=== PATIENT | male | born 1955 | race Caucasian/White ===

== ENCOUNTER 2016-08-29 20:27 | Inpatient (IN) | payer OTHER ==
[2016-08-29 20:55] VITALS: BMI 32.5
[2016-08-29] MEDS ORDERED: SODIUM CHLORIDE 500 ML IV STA ×3 (21:07→23:25)
[2016-08-29 21:33] LABS: BASOPHIL 0.9 % (0-2.0); EOSINOPHIL 0.1 % (0-4.5); MCH 26.8 pg (25.7-33.7); MCHC 32.6 g/dl (32.0-35.9); MEAN CELL VOLUME 82.3 fl (80-96); MEAN PLT VOLUME 9.7 fl (7.5-11.1); NEUTROPHILS 80.9 % (42.8-82.8); PLATELET COUNT 243 K/MM3 (134-434); RDW 13.9 % (11.9-15.9); WHITE BLOOD COUNT 10.5 K/mm3 (4.0-10.0)
--- NOTE | 2016-08-29 21:37 | PDOC ---
History of Present Illness <Edward Colindres - Last Filed: 08/30/16 01:06> - General History Source: Patient Exam Limitations: No Limitations - History of Present Illness Initial Comments: 08/29/16 21:57 The patient is a 61 year old male, with a significant past medical history of diabetes and HLD, who presents to the emergency department with abdominal pain, nausea, vomiting and diarrhea since 5pm yesterday. He describes his abdominal pain as diffused, ranging from mild to moderate, without radiation or modifying factors. He notes that he has vomited a total of 20+ times, nonbloody, but black and watery. He also notes that he has had multiple episodes of diarrhea that is nonbloody in nature. He reports that he had a fever last night of 102 F degrees. The patient denies chest pain, shortness of breath, headache and dizziness. Denies chills, and constipation. Allergies: None Past surgical history: None reported Social history: No alcohol, tobacco or drug use reported <Judd Gordillo - Last Filed: 08/30/16 02:04> - General Chief Complaint: Vomiting/Diarrhea Stated Complaint: VOMITING/DIARRHEA Time Seen by Provider: 08/29/16 21:05 Past History - Past Medical History Anemia: No Asthma: No Cancer: No Cardiac Disorders: No CVA: No COPD: No CHF: No Dementia: No Diabetes: Yes GI Disorders: No Disorders: No HTN: No Hypercholesterolemia: Yes Liver Disease: No Suicide Attempt (Hx): Yes Seizures: No Thyroid Disease: No - Immunization History Immunization Up to Date: Yes - Psycho/Social/Smoking Cessation Hx Anxiety: No Suicidal Ideation: No Smoking Status: Yes Smoking History: Never smoked Have you smoked in the past 12 months: No Number of Cigarettes Smoked Daily: 5 If you are a former smoker, when did you quit?: 2 yrs ago Information on smoking cessation initiated: No 'Breaking Loose' booklet given: 06/24/12 Hx Alcohol Use: No Drug/Substance Use Hx: No Substance Use Type: Alcohol Hx Substance Use Treatment: No <Edward Colindres - Last Filed: 08/30/16 01:06> <Judd Gordillo - Last Filed: 08/30/16 02:04> - Past Medical History Allergies/Adverse Reactions: Allergies Allergy/AdvReac Type Severity Reaction Status Date / Time No Known Allergies Allergy Verified 08/29/16 20:55 Home Medications: Ambulatory Orders Allopurinol [Zyloprim -] 100 mg PO DAILY #0 tablet 06/25/12 Lipase/Protease/Amylase [Mary Jane Perez 12,000 Units Capsule] 0 each PO DAILY Saxagliptin HCl/Metformin HCl [Kombiglyze Xr 2.5-1,000 mg Tab] 1 tab PO DAILY Metronidazole [Flagyl -] 500 mg PO Q8H #18 tablet 02/16/16 Review of Systems - Review of Systems Able to Perform ROS?: Yes Comments:: 08/29/16 21:57 CONSTITUTIONAL: (+) Fever. No chills, no fatigue EYES: No visual changes ENT: No ear pain, no sore throat CARDIOVASCULAR: No chest pain, no palpitations RESPIRATORY: No cough, no SOB GI: (+) abdominal pain, nausea, vomiting, diarrhea GENITOURINARY: No dysuria, no frequency, no hematuria MUSKULOSKELETAL: No backpain, no joint pain, no myalgias SKIN: No rash NEURO: No headache <Judd Gordillo - Last Filed: 08/30/16 02:04> *Physical Exam - Vital Signs Last Vital Signs Temp Pulse Resp BP Pulse Ox 98.0 F 102 H 20 132/67 96 08/29/16 20:52 08/29/16 20:52 08/29/16 20:52 08/29/16 20:52 08/29/16 20:52 <Edward Colindres - Last Filed: 08/30/16 01:06> - Vital Signs Last Vital Signs Temp Pulse Resp BP Pulse Ox 98.0 F 102 H 20 132/67 96 08/29/16 20:52 08/29/16 20:52 08/29/16 20:52 08/29/16 20:52 08/29/16 20:52 - Physical Exam Comments: 08/29/16 21:58 CONSTITUTIONAL: Well-appearing; well-nourished; in no apparent distress HEAD: Normocephalic; atraumatic EYES: PERRL; EOM intact ENMT: (+) Dry Mucous membrane. External appears normal; normal oropharynx NECK: Supple; non-tender; no cervical lymphadenopathy CARD: Normal S1, S2; no murmurs, rubs, or gallops RESP: Normal chest excursion with respiration; breath sounds clear and equal bilaterally; no wheezes, rhonchi, or rales ABD: Soft, non-distended; non-tender; no palpable organomegaly, no palpable hernias EXT: Normal ROM in all four extremities; non-tender to palpation; distal pulses intact SKIN: Warm, dry, no rash NEURO: No focal neurological deficiencies <Judd Gordillo - Last Filed: 08/30/16 02:04> Heart Score/ECG Review #1 ECG reviewed & interpreted by me at: 02:04 08/30/16 00:42 Ventricular rate: 90 bpm Normal sinus rhythm <Judd Gordillo - Last Filed: 08/30/16 02:04> ED Treatment Course - LABORATORY CBC & Chemistry Diagram: 08/29/16 21:20 08/29/16 21:20 <Edward Colindres - Last Filed: 08/30/16 01:06> - LABORATORY CBC & Chemistry Diagram: 08/29/16 21:20 08/29/16 21:20 - ADDITIONAL ORDERS Additional order review: Laboratory Results 08/29/16 21:19 POC Glucometer [id number] 08/29/16 08/29/16 21:20 21:19 RBC 6.09 H D MCV 82.3 MCHC 32.6 RDW 13.9 MPV 9.7 Neutrophils % 80.9 Lymphocytes % 10.0 Monocytes % 8.1 Eosinophils % 0.1 D Basophils % 0.9 POC Glucometer [id number] - Medications Given in the ED: ED Medications Discontinued Medications Generic Name Dose Route Start Last Admin Trade Name Freq PRN Reason Stop Dose Admin Ondansetron HCl 8 mg 08/29/16 21:43 08/29/16 21:55 Zofran Injection IVPB 08/29/16 21:44 8 mg ONCE ONE Administration <Judd Gordillo - Last Filed: 08/30/16 02:04> Medical Decision Making - Medical Decision Making 08/30/16 00:34 Patient is a 61-year-old male with history of diabetes and hyperlipidemia who presents with signs and symptoms of acute gastroenteritis with numerous episodes of initially nonbloody and nonbilious vomiting followed by coffee ground emesis and loose watery stools. In the ER, patient is nontoxic-appearing , afebrile, with no focal abdominal tenderness and serial abdominal evaluations. CBC reveals elevated hemoglobin and hematocrit likely consistent with hemoconcentration. CMP reveals elevated BUN and creatinine compared to baseline consistent with mild prerenal insufficiency. Patient has received IV fluid resuscitation, Zofran and IV protonix area patient is noted to be improved clinically. Patient will require admission for GI eval and additional hydration. <Edward Colindres - Last Filed: 08/30/16 01:06> *DC/Admit/Observation/Transfer - Discharge Dispostion Admit: Yes - Attestations Physician Attestion: 08/30/16 00:34 The documentation was prepared by the scribe under my direct supervision. I have reviewed the documentation which correctly represents the findings, medical decision-making and critical action taken by me. <Edward Colindres - Last Filed: 08/30/16 01:06> - Attestations Scribe Attestion: 08/29/16 21:58 Documentation prepared by Judd Gordillo, acting as medical office supervisor for Edward Colindres MD <Judd Gordillo - Last Filed: 08/30/16 02:04> Diagnosis at time of Disposition: Coffee ground emesis, Dehydration, CHELSEA (acute kidney injury) Nausea & vomiting Qualifiers: Vomiting type: hematemesis Qualified Code(s): K92.0 - Hematemesis
[2016-08-29] MEDS ORDERED: ONDANSETRON 4 MG/2 ML VIAL IVPB ONE (21:43)
[2016-08-29] MEDS ORDERED: PANTOPRAZOLE SODIUM 40 MG in SODIUM CHLORIDE 100 ML IVPB ONE (21:44)
[2016-08-29] MEDS ORDERED: ONDANSETRON 4 MG/2 ML VIAL ONE (21:51)
[2016-08-29] MEDS ORDERED: PANTOPRAZOLE SODIUM 40 MG VIAL ONE (21:51)
[2016-08-29 21:59] LABS: ALBUMIN 4.8 g/dl (3.4-5.0); BILIRUBIN,TOTAL 0.5 mg/dL (0.2-1.0); CALCIUM 9.2 mg/dL (8.5-10.1); CREATININE 1.5 mg/dL (0.7-1.3); TOT PROT 9.1 g/dl (6.4-8.2)
[2016-08-29 22:37] LABS: INR 1.11 (0.82-1.09); PROTHROMBIN TIME (PATIENT) 12.2 SEC (9.98-11.88)
[2016-08-29] MEDS ORDERED: ACETAMINOPHEN 325 MG TABLET (FP) PO ONE (23:25)
[2016-08-29] MEDS ORDERED: ACETAMINOPHEN 325 MG TABLET (FP) ONE (23:34)
[2016-08-30] MEDS ORDERED: SODIUM CHLORIDE 1,000 ML IV SCH (00:30)
[2016-08-30] MEDS ORDERED: ACETAMINOPHEN 325 MG TABLET (FP) PO PRN (00:52)
[2016-08-30] MEDS ORDERED: PANTOPRAZOLE SODIUM 40 MG in SODIUM CHLORIDE 100 ML IVPB SCH (01:00)
[2016-08-30] MEDS: PANTOPRAZOLE SODIUM 40 MG/100 ML PRE-DOCKED IVPB SCH ×3 (01:54→22:43)
--- NOTE | 2016-08-30 08:31 | HP ---
Admitting History and Physical - Admission History of Present Illness: The patient is a 61 year old male, with a significant past medical history of diabetes and HLD, who presents to the emergency department with abdominal pain, nausea, vomiting and diarrhea since 5pm yesterday. He describes his abdominal pain as diffused, ranging from mild to moderate, without radiation or modifying factors. He notes that he has vomited a total of 20+ times, nonbloody, but black and watery. He also notes that he has had multiple episodes of diarrhea that is non bloody in nature. He reports that he had a fever last night of 102 F degrees. THIS AM PT FEELS BETTER - Past Medical History Cardiovascular: Yes: HTN, Hyperlipdemia. No: CAD Pulmonary: No: Asthma Endocrine: Yes: Diabetes Mellitus - Smoking History Smoking history: Former smoker Have you smoked in the past 12 months: No Aproximately how many cigarettes per day: 5 If you are a former smoker, when did you quit?: 2 yrs ago - Alcohol/Substance Use Hx Alcohol Use: No Home Medications - Allergies Allergies/Adverse Reactions: Allergies Allergy/AdvReac Type Severity Reaction Status Date / Time No Known Allergies Allergy Verified 08/29/16 20:55 - Home Medications Home Medications: Ambulatory Orders Allopurinol [Zyloprim -] 100 mg PO DAILY #0 tablet 06/25/12 Lipase/Protease/Amylase [Creon Dr 12,000 Units Capsule] 0 each PO DAILY Saxagliptin HCl/Metformin HCl [Kombiglyze Xr 2.5-1,000 mg Tab] 1 tab PO DAILY Metronidazole [Flagyl -] 500 mg PO Q8H #18 tablet 02/16/16 Review of Systems - Review of Systems Cardiovascular: denies: Chest Pain Respiratory: reports: No Symptoms Gastrointestinal: reports: Abdominal Pain, Diarrhea, Nausea, Vomiting Genitourinary: reports: No Symptoms Musculoskeletal: reports: No Symptoms Neurological: reports: Headache. denies: Change in Speech, Parasthesia, Tremors Physical Examination Vital Signs: Vital Signs Temperature 99.9 F H 08/30/16 06:00 Pulse Rate 96 H 08/30/16 06:00 Respiratory Rate 18 08/30/16 06:00 Blood Pressure 137/67 08/30/16 06:00 O2 Sat by Pulse Oximetry (%) 99 08/30/16 02:05 Neck: Yes: Supple Cardiovascular: Yes: Regular Rate and Rhythm Respiratory: Yes: Regular, CTA Bilaterally Gastrointestinal: Yes: Normal Bowel Sounds, Soft Edema: No Neurological: Yes: Alert, Oriented Assessment/Plan 1. N/V AD DIARRHEA MAYBE BE AGE IVF PPI GI CONSULT 2. COFFEE GROUND EMESIS R/O GI BLEED MONITOR HGB 3, DEHYDRATION/RENAL INSUFICIENCY-ACUTE IVF MONITOR 4. HEADCHES CT OF HEAD 5, FEVR CUTURES ID CONSULT
[2016-08-30 09:17] LABS: MCH 27.2 pg (25.7-33.7); MCHC 33.1 g/dl (32.0-35.9); MEAN CELL VOLUME 82.2 fl (80-96); MEAN PLT VOLUME 9.1 fl (7.5-11.1); PLATELET COUNT 202 K/MM3 (134-434); RDW 13.8 % (11.9-15.9); WHITE BLOOD COUNT 7.9 K/mm3 (4.0-10.0)
[2016-08-30 09:38] LABS: ALBUMIN 3.5 g/dl (3.4-5.0); ANION GAP 13 (8-16); CALCIUM 7.8 mg/dL (8.5-10.1); CO2 19 mmol/L (21-32); COCKROFT - GAULT 98; GLUCOSE,RANDOM 174 mg/dL (74-106); SGOT/AST 38 U/L (15-37); SGPT/ALT 40 U/L (12-78); TOT PROT 6.9 g/dl (6.4-8.2)
[2016-08-30 09:41] LABS: ALK PHOS 53 U/L (45-117); BILIRUBIN,TOTAL 0.5 mg/dL (0.2-1.0); FERRITIN 123.665 ng/ml (16.4-293.9)
[2016-08-30] MEDS: ALLOPURINOL 100 MG TABLET (FP) PO SCH (09:43)
--- NOTE | 2016-08-30 13:40 | CON.GI ---
Consult Consult Specialty:: gastroenterology Referred by:: Vitor Dia/ Ara Patel MD - History of Present Illness History of Present Illness: 61 y/ male PMH of diabetes was doing well until 2 days prior to admission when developed persistent nausea and vomiting, abdominal pain and diarrhea. Diarrhea 10-20 times a day. After several episodes of persistent vomiting, he developed 1 episode of coffee ground vomitus. This morning nausea and vomiting subsided. He continues to have diarrhea. There was no travel history. - Alcohol/Substance Use Hx Alcohol Use: No - Smoking History Smoking history: Former smoker Have you smoked in the past 12 months: No Aproximately how many cigarettes per day: 5 If you are a former smoker, when did you quit?: 2 yrs ago Home Medications - Allergies Allergies/Adverse Reactions: Allergies Allergy/AdvReac Type Severity Reaction Status Date / Time No Known Allergies Allergy Verified 08/29/16 20:55 - Home Medications Home Medications: Ambulatory Orders Allopurinol [Zyloprim -] 100 mg PO DAILY #0 tablet 06/25/12 Lipase/Protease/Amylase [Creon Dr 12,000 Units Capsule] 0 each PO DAILY Saxagliptin HCl/Metformin HCl [Kombiglyze Xr 2.5-1,000 mg Tab] 1 tab PO DAILY Metronidazole [Flagyl -] 500 mg PO Q8H #18 tablet 02/16/16 Family Disease History - Family Disease History Family History: Denies (gastric and colon cancer) Review of Systems - Review of Systems Constitutional: denies: Fever HENT: denies: Difficult Swallowing Neck: denies: Decreased ROM Cardiovascular: denies: Chest Pain Gastrointestinal: reports: Diarrhea, Other (coffee ground vomitus). denies: Constipation, Rectal Bleeding Physical Exam-GI Vital Signs: Vital Signs Temperature 99.0 F 08/30/16 10:00 Pulse Rate 91 H 08/30/16 10:00 Respiratory Rate 18 08/30/16 10:00 Blood Pressure 105/59 08/30/16 10:00 O2 Sat by Pulse Oximetry (%) 97 08/30/16 09:00 Constitutional: Yes: Well Nourished Eyes: Yes: Conjunctiva Clear HENT: Yes: Atraumatic Neck: Yes: Trachea Midline Cardiovascular: Yes: Regular Rate and Rhythm ...Palpate: Yes: Soft. No: Firm/Rigid, Guarding, Hepatomegaly, Mass, Pulsatile Mass, Splenomegaly, Tenderness Labs: CBC, BMP 08/30/16 08:40 08/30/16 08:40 INR, PTT INR 1.11 (0.82-1.09) 08/29/16 22:05 Hepatic Panel Total Bilirubin 0.5 mg/dL (0.2-1.0) 08/30/16 08:40 AST 38 U/L (15-37) H D 08/30/16 08:40 ALT 40 U/L (12-78) D 08/30/16 08:40 Alkaline Phosphatase 53 U/L (45-117) D 08/30/16 08:40 Albumin 3.5 g/dl (3.4-5.0) D 08/30/16 08:40 Home Medications Medication Instructions Recorded Allopurinol [Zyloprim -] 100 mg PO DAILY #0 tablet 06/25/12 Lipase/Protease/Amylase [Creon Dr 0 each PO DAILY 05/09/15 12,000 Units Capsule] Saxagliptin HCl/Metformin HCl 1 tab PO DAILY 05/09/15 [Kombiglyze Xr 2.5-1,000 mg Tab] Metronidazole [Flagyl -] 500 mg PO Q8H #18 tablet 02/16/16 Problem List - Problems (1) Infectious diarrhea Code(s): A09 - INFECTIOUS GASTROENTERITIS AND COLITIS, UNSPECIFIED (2) Halie-Ludwig tear Assessment/Plan: r> Protonix 40mg daily Reglan 5mg 30 min ac EGD as an outpatient patient was made aware to ff-up Code(s): K22.6 - GASTRO-ESOPHAGEAL LACERATION-HEMORRHAGE SYNDROME
[2016-08-30] MEDS ORDERED: ONDANSETRON 4 MG/2 ML VIAL IVPB STA (13:48)
[2016-08-30] MEDS: ONDANSETRON 4 MG/2 ML VIAL IVPB SCH ×3 (14:53→22:46)
[2016-08-30] MEDS: CEFTRIAXONE 1G/50 ML IVPB SCH (15:33)
[2016-08-30 16:53] LABS: URINE APPEARANCE CLEAR; URINE BILIRUBIN NEGATIVE (NEGATIVE); URINE BLOOD NEGATIVE (NEGATIVE); URINE COLOR LTYELLOW; URINE GLUCOSE (UA) 3+ (NEGATIVE); URINE KETONE 1+ (NEGATIVE); URINE LEUK ESTERASE NEGATIVE (NEGATIVE); URINE NITRITE NEGATIVE (NEGATIVE); URINE PROTEIN NEGATIVE (NEGATIVE); URINE UROBILINOGEN NEGATIVE E.U./dl (0.2-1.0)
[2016-08-30] MEDS: SODIUM CHLORIDE 0.45%/POT 1,000 ML IV SCH (17:28)
[2016-08-30] MEDS: METOCLOPRAMIDE HCL INJECTION 10 MG/2 ML VIAL IVPB SCH (17:28)
[2016-08-30 19:22] LABS: MCHC 32.9 g/dl (32.0-35.9); MEAN CELL VOLUME 82.1 fl (80-96); MEAN PLT VOLUME 8.7 fl (7.5-11.1); PLATELET COUNT 200 K/MM3 (134-434); RDW 13.6 % (11.9-15.9); WHITE BLOOD COUNT 6.6 K/mm3 (4.0-10.0)
[2016-08-30 19:48] LABS: ALBUMIN 3.6 g/dl (3.4-5.0); ANION GAP 11 (8-16); BILIRUBIN,TOTAL 0.4 mg/dL (0.2-1.0); CALCIUM 8.1 mg/dL (8.5-10.1); CO2 21 mmol/L (21-32); COCKROFT - GAULT 98; GLUCOSE,RANDOM 155 mg/dL (74-106); SGOT/AST 39 U/L (15-37); SGPT/ALT 37 U/L (12-78)
[2016-08-30 19:49] LABS: ALK PHOS 52 U/L (45-117); TOT PROT 7.2 g/dl (6.4-8.2)
[2016-08-30 19:53] LABS: TROPONIN I < 0.02 ng/ml (0.00-0.05)
[2016-08-30] MEDS ORDERED: LEVOFLOXACIN 750 MG IVPB 150 ML IVPB ONE (20:00)
[2016-08-31] MEDS: METOCLOPRAMIDE HCL INJECTION 10 MG/2 ML VIAL IVPB SCH ×3 (01:39→17:53)
[2016-08-31] MEDS: ONDANSETRON 4 MG/2 ML VIAL IVPB SCH (02:25)
[2016-08-31] MEDS ORDERED: ONDANSETRON 4 MG/2 ML VIAL IVPB PRN (02:30)
[2016-08-31 06:36] LABS: SERUM IRON 21 ug/dL (38-169); TOTAL IRON BINDING CAPACITY 331 ug/dL (250-450); UIBC 310 ug/dL (111-343)
[2016-08-31] MEDS: SODIUM CHLORIDE 0.45%/POT 1,000 ML IV SCH ×3 (08:10→20:46)
[2016-08-31 08:32] LABS: BASOPHIL 0.8 % (0-2.0); EOSINOPHIL 0.1 % (0-4.5); MCH 27.3 pg (25.7-33.7); MCHC 33.2 g/dl (32.0-35.9); MEAN CELL VOLUME 82.2 fl (80-96); MEAN PLT VOLUME 9.1 fl (7.5-11.1); NEUTROPHILS 59.7 % (42.8-82.8); PLATELET COUNT 187 K/MM3 (134-434); RDW 13.6 % (11.9-15.9); WHITE BLOOD COUNT 4.7 K/mm3 (4.0-10.0)
[2016-08-31 08:46] LABS: ALBUMIN 3.1 g/dl (3.4-5.0); ANION GAP 14 (8-16); CALCIUM 8.4 mg/dL (8.5-10.1); CO2 20 mmol/L (21-32); COCKROFT - GAULT 109.88; CREATININE 0.9 mg/dL (0.7-1.3); GLUCOSE,RANDOM 157 mg/dL (74-106); SGPT/ALT 33 U/L (12-78)
[2016-08-31 08:51] LABS: ALK PHOS 47 U/L (45-117); BILIRUBIN,TOTAL 0.4 mg/dL (0.2-1.0); TOT PROT 6.5 g/dl (6.4-8.2); TROPONIN I < 0.02 ng/ml (0.00-0.05)
[2016-08-31 08:54] LABS: SGOT/AST 41 U/L (15-37)
[2016-08-31 09:09] LABS: INR 1.24 (0.82-1.09); PROTHROMBIN TIME (PATIENT) 13.7 SEC (9.98-11.88)
[2016-08-31] MEDS: ALLOPURINOL 100 MG TABLET (FP) PO SCH (10:22)
[2016-08-31] MEDS: CEFTRIAXONE 1G/50 ML IVPB SCH (10:22)
[2016-08-31] MEDS: PANTOPRAZOLE SODIUM 40 MG/100 ML PRE-DOCKED IVPB SCH ×2 (11:19→21:18)
--- NOTE | 2016-08-31 14:07 | PN ---
Progress Note, Physician History of Present Illness: FEELS BETTER NO GARCIA NO ABDOMINAL PAIN - Current Medication List Current Medications: Active Medications Acetaminophen (Tylenol -) 650 mg PO Q4H PRN PRN Reason: FEVER OR PAIN Last Admin: 08/30/16 06:15 Dose: 650 mg Allopurinol (Zyloprim -) 100 mg PO DAILY [facility] Last Admin: 08/31/16 10:22 Dose: 100 mg Ceftriaxone Sodium (Rocephin 1gm Ivpb (Pre-Docked)) 50 mls @ 100 mls/hr IVPB DAILY [facility] Last Admin: 08/31/16 10:22 Dose: 100 mls/hr Potassium Chloride/Sodium Chloride (1/2ns+20meq Kcl) 1,000 mls @ 100 mls/hr IV ASDIR [facility] Last Admin: 08/31/16 08:10 Dose: 100 mls/hr Metoclopramide HCl (Reglan Injection -) 10 mg IVPB Q8H-IV [facility] Last Admin: 08/31/16 12:43 Dose: 10 mg Ondansetron HCl (Zofran Injection) 4 mg IVPB Q4H PRN PRN Reason: NAUSEA AND/OR VOMITING Pantoprazole Sodium (Protonix 40mg Ivpb (Pre-Docked)) 40 mg IVPB BID [facility] Last Admin: 08/31/16 11:19 Dose: 40 mg - Objective Vital Signs: Vital Signs Temperature 98.2 F 08/31/16 09:38 Pulse Rate 69 08/31/16 09:38 Respiratory Rate 18 08/31/16 09:38 Blood Pressure 106/65 08/31/16 09:38 O2 Sat by Pulse Oximetry (%) 99 08/31/16 09:00 Cardiovascular: Yes: Regular Rate and Rhythm Respiratory: Yes: Regular, CTA Bilaterally Gastrointestinal: Yes: Normal Bowel Sounds, Soft. No: Tenderness Labs: CBC, BMP 08/31/16 06:45 08/31/16 06:45 INR, PTT INR 1.24 (0.82-1.09) H 08/31/16 06:45 Assessment/Plan 1. N/V AD DIARRHEA MAYBE BE AGE RESOLVED MONITOR IVF PPI GI CONSULT NOTED 2. COFFEE GROUND EMESIS R/O GI BLEED MONITOR HGB 3, DEHYDRATION/RENAL INSUFICIENCY-ACUTE IVF MONITOR 4. HEADACHES CT OF HEAD NAD 5, FEVER CUTURES ID CONSULT 4. HYPOTENSION IMPROVING MONITOR
[2016-09-01] MEDS: METOCLOPRAMIDE HCL INJECTION 10 MG/2 ML VIAL IVPB SCH ×2 (01:10→10:07)
--- NOTE | 2016-09-01 09:04 | EKG ---
Test Reason : Blood Pressure : / mmHG Vent. Rate : 090 BPM Atrial Rate : 090 BPM P-R Int : 188 ms QRS Dur : 098 ms QT Int : 450 ms P-R-T Axes : 029 -11 036 degrees QTc Int : 550 ms NORMAL SINUS RHYTHM CANNOT RULE OUT ANTERIOR INFARCT , AGE UNDETERMINED ABNORMAL ECG WHEN COMPARED WITH ECG OF 15-FEB-2016 11:12, QT HAS LENGTHENED Confirmed by BRAD DEVI, RADHA ([id number]) on 09/01/2016 9:04:14 AM Referred By: Confirmed By:RADHA SALINAS MD
--- NOTE | 2016-09-01 09:04 | EKG ---
Test Reason : Blood Pressure : / mmHG Vent. Rate : 086 BPM Atrial Rate : 086 BPM P-R Int : 196 ms QRS Dur : 098 ms QT Int : 374 ms P-R-T Axes : 025 -06 022 degrees QTc Int : 447 ms NORMAL SINUS RHYTHM NONSPECIFIC T WAVE ABNORMALITY ABNORMAL ECG WHEN COMPARED WITH ECG OF 30-AUG-2016 00:42, QT HAS SHORTENED Confirmed by RADHA SALINAS MD ([id number]) on 09/01/2016 9:03:59 AM Referred By: Confirmed By:RADHA SALINAS MD
--- NOTE | 2016-09-01 09:08 | EKG ---
Test Reason : Blood Pressure : / mmHG Vent. Rate : 073 BPM Atrial Rate : 073 BPM P-R Int : 206 ms QRS Dur : 098 ms QT Int : 398 ms P-R-T Axes : 014 -08 022 degrees QTc Int : 438 ms NORMAL SINUS RHYTHM NORMAL ECG WHEN COMPARED WITH ECG OF 30-AUG-2016 02:17, NONSPECIFIC T WAVE ABNORMALITY NO LONGER EVIDENT IN ANTEROLATERAL LEADS Confirmed by BRAD DEVI, RADHA ([id number]) on 09/01/2016 9:07:53 AM Referred By: Stanley BROOKS Confirmed By:RADHA SALINAS MD
[2016-09-01] MEDS ORDERED: PT OWN MED DRAWER 7, Y5N ONE (10:03)
[2016-09-01] MEDS: ALLOPURINOL 100 MG TABLET (FP) PO SCH (10:06)
[2016-09-01] MEDS: PANTOPRAZOLE SODIUM 40 MG/100 ML PRE-DOCKED IVPB SCH (10:07)
[2016-09-01] MEDS: CEFTRIAXONE 1G/50 ML IVPB SCH (10:09)
[2016-09-01] MEDS: SODIUM CHLORIDE 0.45%/POT 1,000 ML IV SCH (10:10)
--- NOTE | 2016-09-01 10:36 | DS ---
Physical Examination Vital Signs: Vital Signs Temperature 97.7 F 09/01/16 06:00 Pulse Rate 65 09/01/16 06:00 Respiratory Rate 18 09/01/16 06:00 Blood Pressure 101/65 09/01/16 06:00 O2 Sat by Pulse Oximetry (%) 99 08/31/16 20:43 Constitutional: Yes: Calm Neck: Yes: Trachea Midline Cardiovascular: Yes: Regular Rate and Rhythm, S1, S2 Respiratory: Yes: CTA Bilaterally Gastrointestinal: Yes: Soft Edema: No Neurological: Yes: Alert, Oriented Labs: CBC, BMP 08/31/16 06:45 08/31/16 06:45 Discharge Summary Reason For Visit: NAUSEA/VOMITING/DEHYDRATION Current Active Problems CHELSEA (acute kidney injury) (Acute) Coffee ground emesis (Acute) Dehydration (Acute) Infectious diarrhea (Acute) Halie-Ludwig tear (Acute) Nausea & vomiting (Acute) Hospital Course: The patient is a 61 year old male, with a significant past medical history of diabetes and HLD, who presents to the emergency department with abdominal pain, nausea, vomiting and diarrhea since 5pm yesterday. He describes his abdominal pain as diffused, ranging from mild to moderate, without radiation or modifying factors. He notes that he has vomited a total of 20+ times, nonbloody, but black and watery. He also notes that he has had multiple episodes of diarrhea that is nonbloody in nature. He reports that he had a fever last night of 102 F degrees. The patient denies chest pain, shortness of breath, headache and dizziness. Denies chills, and constipation. Allergies: None Past surgical history: None reported Social history: No alcohol, tobacco or drug use reported wbc count now normal no more fever posbbile AGE cultures negative no more vomitting or nausea reglan 5mg ac meals, protonix 40mg daily iv to po abx EGD as outpatient Condition: Improved - Instructions Diet, Activity, Other Instructions: reglan 5mg po ac meals protonix 40mg po daily Referrals: Evin Matta MD [Staff Physician] - 3 Weeks (for outpatient endoscopy) Vitor Dia MD [Staff Physician] - 2 Weeks Disposition: HOME - Home Medications Comprehensive Discharge Medication List: Ambulatory Orders Allopurinol [Zyloprim -] 100 mg PO DAILY #0 tablet 06/25/12 Lipase/Protease/Amylase [Creon Dr 12,000 Units Capsule] 0 each PO DAILY Saxagliptin HCl/Metformin HCl [Kombiglyze Xr 2.5-1,000 mg Tab] 1 tab PO DAILY Metronidazole [Flagyl -] 500 mg PO Q8H #18 tablet 02/16/16
--- NOTE | 2016-09-01 10:44 | PN ---
Progress Note (short form) - Note Progress Note: patient in be no vommting no nausea willl change meds to po have patient shower will change abx to po and dc home
[2016-09-01] MEDS ORDERED: PANTOPRAZOLE 40 MG TABLET (FP) PO SCH (10:45)
[2016-09-01] MEDS ORDERED: METOCLOPRAMIDE HCL 10 MG TABLET (FP) PO SCH (11:00)
[2016-09-01 12:57] VITALS: BP 114/81; PULSE 66; TEMP 97.5
== END 2016-09-01 14:35 | disposition home or self-care (01) | DRG 460 ==
LOC: JER 20:27 → JERBED 08-30 01:07 → UNDOADMIN 08-30 01:27 → JERBED 08-30 01:27 → J8W 08-30 02:37
PROVIDERS: ADMIT Family Medicine; ATTEND Family Medicine
DX: N17.9 Acute kidney failure, unspecified (principal); A09 Infectious gastroenteritis and colitis, unspecified; E11.9 Type 2 diabetes mellitus without complications; E78.5 Hyperlipidemia, unspecified; E86.0 Dehydration; K92.0 Hematemesis; R51 Headache; K22.6 Gastro-esophageal laceration-hemorrhage syndrome; Z87.891 Personal history of nicotine dependence
CPT/HCPCS: 36415; 70450-TC; 71010-TC; 71020-TC; 74020-TC; 80053; 81003; 82272; 82550; 82728; 83540; 83550; 83605; 83690; 83735; 84484; 85025; 85027; 85610; 86850; 86900; 86901; 87040; 87045; 87046; 87086; 87205; 87324; 87449; 93005; 93010; 99283-25; J3480

== ENCOUNTER 2020-07-09 13:58 | Emergency (ER) | payer MEDICARE, OTHER ==
[2020-07-09 14:30] VITALS: TEMP 99; BMI 29.5
[2020-07-09] MEDS ORDERED: TAMSULOSIN HCL 0.4 MG CAP PO ONE (16:13)
[2020-07-09 20:00] LABS: PH,URINE 5.5 (5.0-8.0); URINE APPEARANCE CLEAR; URINE BILIRUBIN NEGATIVE (NEGATIVE); URINE COLOR YELLOW; URINE GLUCOSE (UA) 3+ (NEGATIVE); URINE KETONE TRACE (NEGATIVE); URINE LEUK ESTERASE NEGATIVE (NEGATIVE); URINE NITRITE NEGATIVE (NEGATIVE); URINE PROTEIN NEGATIVE (NEGATIVE); URINE UROBILINOGEN 0.2 mg/dL (0.2-1.0)
[2020-07-09 20:07] VITALS: BP 134/79; PULSE 89
== END 2020-07-09 20:10 | disposition left against medical advice (07) ==
LOC: JER 13:58
DX: R33.9 Retention of urine, unspecified (principal)
CPT/HCPCS: 76856-TC; 81003; 87086; 99284-25

== ENCOUNTER 2021-08-04 07:40 | Emergency (ER) | payer OTHER ==
[2021-08-04 07:52] VITALS: TEMP 97.5; BMI 29.5
[2021-08-04] MEDS ORDERED: ACETAMINOPHEN 500 MG TABLET (FP) PO ONE (09:17)
[2021-08-04] MEDS ORDERED: morphine CARPU-JECT 4 MG/1 ML DISP.SYRIN IVPUSH ONE (09:49)
[2021-08-04] MEDS ORDERED: morphine SULFATE 4 MG/ML VIAL ONE (09:55)
[2021-08-04 10:17] LABS: BASO % 1.2 % (0-2.0); EOS % 1.7 % (0-4.5); HEMATOCRIT 39.1 % (35.4-49); HEMOGLOBIN 13.1 GM/dL (11.7-16.9); LYMPH % 20.7 % (8-40); MCH 27.5 pg (25.7-33.7); MCHC 33.6 g/dl (32.0-35.9); MEAN CELL VOLUME 81.8 fl (80-96); MEAN PLT VOLUME 8.3 fl (7.5-11.1); MONO % 7.9 % (3.8-10.2); NEUT % 68.5 % (42.8-82.8); PLATELET COUNT 242 10^3/uL (134-434); RBC 4.78 M/mm3 (4.00-5.60); RDW 13.3 % (11.9-15.9); WHITE BLOOD COUNT 7.1 K/mm3 (4.0-10.0)
[2021-08-04 10:38] LABS: ALBUMIN 3.4 g/dl (3.4-5.0); BLOOD UREA NITROGEN 16.5 mg/dL (7-18); CALCIUM 8.9 mg/dL (8.5-10.1)
[2021-08-04 10:40] LABS: CREATININE 0.7 mg/dL (0.55-1.3)
[2021-08-04 10:42] LABS: BILIRUBIN,TOTAL 0.2 mg/dL (0.2-1); TOT PROT 7.6 g/dl (6.4-8.2)
[2021-08-04 12:56] VITALS: BP 124/76; PULSE 78
== END 2021-08-04 12:56 | disposition home or self-care (01) ==
LOC: JER 07:40
PROC: 3E033GC Introduction of Other Therapeutic Substance into Peripheral Vein, Percutaneous Approach (ICD-10-PCS; principal; 2021-08-04)
DX: K85.90 Acute pancreatitis without necrosis or infection, unspecified (principal)
CPT/HCPCS: 36415; 74177-TC; 80053; 83605; 83690; 85025; 93005; 93010; 96374; 99285-25; Q9967

== ENCOUNTER 2021-09-09 04:46 | Day surgery (SDC) | payer OTHER ==
[2021-09-05 16:35] VITALS: BMI 29.5
[2021-09-09 11:35] VITALS: TEMP 97.3
[2021-09-09 12:01] VITALS: PULSE 64
[2021-09-09 12:25] VITALS: BP 115/71
== END 2021-09-09 12:15 | disposition home or self-care (01) ==
LOC: JASU-ENDO 04:46
PROVIDERS: ATTEND Internal Medicine Gastroenterology
PROC: 0DB78ZX Excision of Stomach, Pylorus, Via Natural or Artificial Opening Endoscopic, Diagnostic (ICD-10-PCS; 2021-09-09)
PROC: 0DB68ZX Excision of Stomach, Via Natural or Artificial Opening Endoscopic, Diagnostic (ICD-10-PCS; 2021-09-09)
PROC: 0DB98ZX Excision of Duodenum, Via Natural or Artificial Opening Endoscopic, Diagnostic (ICD-10-PCS; principal; 2021-09-09 11:00)
DX: K25.9 Gastric ulcer, unspecified as acute or chronic, without hemorrhage or perforation (principal); K29.50 Unspecified chronic gastritis without bleeding; E11.9 Type 2 diabetes mellitus without complications; Z79.84 Long term (current) use of oral hypoglycemic drugs
CPT/HCPCS: 82962; 88305-TC; 88342-TC

== ENCOUNTER 2022-09-02 04:19 | Day surgery (SDC) | payer OTHER ==
[2022-09-01 08:53] VITALS: BMI 29.5
[2022-09-02 07:43] VITALS: TEMP 98
[2022-09-02 09:25] VITALS: BP 103/62; PULSE 64; RESP 15
== END 2022-09-02 09:10 | disposition home or self-care (01) ==
LOC: JASU-ENDO 04:19
PROVIDERS: ATTEND Internal Medicine Gastroenterology
PROC: 0DJD8ZZ Inspection of Lower Intestinal Tract, Via Natural or Artificial Opening Endoscopic (ICD-10-PCS; principal; 2022-09-02 08:00)
DX: Z12.11 Encounter for screening for malignant neoplasm of colon (principal); K57.30 Diverticulosis of large intestine without perforation or abscess without bleeding; K64.8 Other hemorrhoids; Z86.010 Personal history of colon polyps
CPT/HCPCS: 82962